=== PATIENT | female | born 1950 | race Caucasian/White ===

== ENCOUNTER 2020-02-28 21:57 | Emergency (ER) | payer OTHER ==
[~2020-02-28] VITALS: Ht 149.9 cm; Wt 90.7 kg
--- NOTE | 2020-02-28 22:04 | Emergency Department Note ---
History of Present Illnes History of Present Illness History of Present Illness This is a 69 year old female with acute on dyspnea 2 hours prior to arrival. Patient with positive exposure to daughter with COVID-19. Presents to the ED in extremis . Arrival Mode: Car Onset (how long ago): hour(s) (2) Severity: severe Onset quality: sudden Duration (how long): hour(s) (2) Timing of current episode: constant Progression: worsening Chronicity: new Associated symptoms: Reports cough, Reports malaise, Reports shortness of breath Treatments prior to arrival: none Past Medical/Family History Physician Review I have reviewed the patient's past medical and family history. Any updates have been documented here. Past Medical History Recent Fever: Yes Clinical Suspicion of Infectio: Yes New/Unexplained Change in Ment: No Past Medical History: Hypertension Past Surgical History: None Social History Smoking Cessation: Never Smoker Alcohol Use: None Any Illegal Drug Use: No Review of Systems Review of Systems Constitutional: Reports fever, Reports weakness EENTM: Reports no symptoms Cardiovascular: Reports no symptoms Respiratory: Reports dyspnea Gastrointestinal: Reports no symptoms Genitourinary: Reports no symptoms Musculoskeletal: Reports no symptoms Integumentary: Reports no symptoms Neurological: Reports no symptoms Psychological: Reports no symptoms Endocrine: Reports no symptoms Hematological/Lymphatic: Reports no symptoms Physical Exam Related Data Allergies: Coded Allergies: Penicillins (Verified Allergy, Intermediate, 02/28/20) Triage Vital Signs Vital Signs Date Time Temp Pulse Resp B/P (MAP) Pulse Ox O2 Delivery O2 Flow Rate FiO2 02/28/20 21:57 99.8 89 217/95 78 02/28/20 22:21 24 Vital signs reviewed: Yes Physical Exam CONSTITUTIONAL Constitutional: Present morbidly obese, Present distressed, Present ill appearing HENT HENT: Present normocephalic, Present atraumatic, Present oropharynx clear/moist, Present nose normal HENT L/R: Present left ext ear normal, Present right ext ear normal EYES Eyes: Reports PERRL, Reports conjunctivae normal NECK Neck: Present ROM normal PULMONARY Pulmonary: Present respiratory distress, Present rhonchi CARDIOVASCULAR Cardiovascular: Present regular rhythm, Present heart sounds normal, Present capillary refill normal, Present normal rate GASTROINTESTINAL Abdominal: Present soft, Present nontender, Present bowel sounds normal GENITOURINARY Genitourinary: Present exam deferred SKIN Skin: Present warm, Present dry MUSCULOSKELETAL Musculoskeletal: Present edema (2+ b/l ) NEUROLOGICAL Neurological: Present alert, Present oriented x 3, Present no gross motor or sensory deficits PSYCHOLOGICAL Psychological: Present mood/affect normal, Present judgement normal Results Laboratory Lab results reviewed: Yes Imaging Imaging results reviewed: Yes Impressions [facility] [address] [place] [address] Patient Name: ELIZ WHALEY MR #: [id number] : 1950 Age/Sex: 69/F Req #: [id number] Adm Physician: Ordered by: SHAHRZAD GONZALEZ DO Report #: [id number] Location: ER Room/Bed: Procedure: [id number] DX/CHEST SINGLE (PORTABLE) Exam Date: 02/28/20 Exam Time: 2250 REPORT STATUS: Signed EXAMINATION: CHEST SINGLE (PORTABLE) INDICATION: Short of breath, cough, fever COMPARISON: None FINDINGS: TUBES and LINES: None. LUNGS: Normal lung volumes. Peripheral and lower lung haziness. Central bronchial wall thickening. PLEURA: No pleural effusion or pneumothorax. HEART AND MEDIASTINUM: The cardiomediastinal silhouette is unremarkable. BONES AND SOFT TISSUES: No acute osseous lesion. Soft tissues are unremarkable. UPPER ABDOMEN: No free air under the diaphragm. IMPRESSION: Findings concerning for multifocal pneumonia, possibly viral. Signed by: Matty Huddleston DO on 02/29/2020 12:12 AM Dictated By: MATTY HUDDLESTON DO Transcribed By: RUPERTO on 02/29/2011 COPY TO: SHAHRZAD GONZALEZ DO~ Procedures 12 Lead ECG Interpretation ECG Interpretation : ECG: ECG 1 Solar Panel Installer: Interpreted by ED physician Date: Feb 28, 2020 Time: 22:16 Prior ECG tracings: reviewed Rhythm: sinus rhythm Ectopy: PVC's Rate: normal BPM: 81 QRS axis: normal ST segments normal: Yes T waves normal: Yes Clinical Impression: abnormal ECG Critical Care Time Total Critical Care Time (min): 31 Critcal care necessary due to: respiratory failure Critcal care time spent by me: develop tx plan w patient/surrogate, evaluation patient response to tx, examination of patient, obtaining hx from patien t/surrogate, order/perform tx or interventions, order/review radiographic studies, pulse oximetry, re-evaluation of patient condition Assessment & Plan Medical Decision Making MDM 69 yof with high suspicion for COVID-19 infection. Patient with elevated BP and low oxygen saturation. Diff Dx : ACS, PTX, PE, pneumonia, CHF. Concern for im pending respiratory failure high. Constant re-evaluation of patient and oxygenation. Patient to be transferred to [facility] for ICU admission Status : CRITICAL Assessment & Plan Final Impression: (1) Upper respiratory tract infection due to COVID-19 virus (2) Hypoxia (3) Congestive heart failure (CHF) (4) Hypertensive emergency Depart Disposition: TRANS TO OTHER [facility] SHAHRZAD GONZALEZ DO Feb 28, 2020 22:04
[2020-02-28] MEDS ORDERED: HYDRALAZINE HCL 20 MG/ML VIAL IV STA (22:11)
[2020-02-28] MEDS ORDERED: ALBUTEROL SULF 0.083% NEB SOLN 3 ML NEB NEB STA (22:18)
[2020-02-28 22:19] LABS: BASOPHILS % 0.2 % (0.0-1.0); EOSINOPHILS % 0.5 % (0.0-6.0); HEMATOCRIT 43.4 % (34.2-44.1); HEMOGLOBIN 14.8 g/dL (12.0-16.0); LYMPHOCYTES # (AUTO) 1.6 (1.0-3.2); LYMPHOCYTES % 29.1 % (18.0-39.1); MEAN CORPUSCULAR HEMOGLOBIN 30.4 pg (28-32); MEAN CORPUSCULAR HGB CONC 34.1 g/dL (31-35); MEAN CORPUSCULAR VOLUME 89.1 fL (81-99); MONOCYTES # (AUTO) 0.5 (0.2-0.8); MONOCYTES % 9.1 % (4.4-11.3); NEUTROPHILS # (AUTO) 3.3 (2.1-6.9); NEUTROPHILS % 60.7 % (38.7-80.0); PLATELET COUNT 210 x10e3/uL (140-360); RED BLOOD COUNT 4.87 x10e6/uL (3.6-5.1); RED CELL DISTRIBUTION WIDTH 12.8 % (11.7-14.4)
[2020-02-28] MEDS ORDERED: ALBUTEROL SULFATE HFA 8GM INHALATION AEROSOL INH ONE (22:36)
[2020-02-28 22:37] LABS: ALANINE AMINOTRANSFERASE 30 IU/L (0-55); ALBUMIN 3.6 g/dL (3.5-5.0); ALBUMIN/GLOBULIN RATIO 0.8 (0.8-2.0); ALKALINE PHOSPHATASE 86 IU/L (40-150); ANION GAP 15.7 mmol/L (8-16); BLOOD UREA NITROGEN 16 mg/dL (7-26); BUN/CREATININE RATIO 19 (6-25); CARBON DIOXIDE 24 mmol/L (22-29); CHLORIDE 100 mmol/L (98-107); CREATINE KINASE 195 IU/L (29-168); CREATININE, SERUM 0.83 mg/dL (0.57-1.11); EST GLOMERULAR FILTRATION RATE > 60 ML/MIN (60-); GLUCOSE 97 mg/dL (74-118); POTASSIUM 3.7 mmol/L (3.5-5.1); SODIUM 136 mmol/L (136-145)
[2020-02-28] MEDS ORDERED: ALBUTEROL SULFATE HFA 8GM INHALATION AEROSOL INH PRN (22:45)
--- NOTE | 2020-02-28 22:50 | NUR ---
Melyssa munoz in ED - 02/28/20 at 2341 by TONY RT AT BEDSIDE FOR BIPAP PLACEMENT.
[2020-02-28] MEDS ORDERED: ONDANSETRON HCL INJ 2MG/ML 2ML 2 MG/ML VIAL IV STA (23:38)
[2020-02-29] MEDS ORDERED: FUROSEMIDE INJ 10 MG/ML 10 ML VIAL IV STA (00:12)
--- NOTE | 2020-02-29 00:15 | Diagnostic Imaging Report ---
EXAMINATION: CHEST SINGLE (PORTABLE) INDICATION: Short of breath, cough, fever COMPARISON: None FINDINGS: TUBES and LINES: None. LUNGS: Normal lung volumes. Peripheral and lower lung haziness. Central bronchial wall thickening. PLEURA: No pleural effusion or pneumothorax. HEART AND MEDIASTINUM: The cardiomediastinal silhouette is unremarkable. BONES AND SOFT TISSUES: No acute osseous lesion. Soft tissues are unremarkable. UPPER ABDOMEN: No free air under the diaphragm. IMPRESSION: Findings concerning for multifocal pneumonia, possibly viral. Signed by: Matty Huddleston DO on 02/29/2020 12:12 AM
[2020-02-29 01:13] LABS: CLARITY,URINE CLEAR (CLEAR); COLOR,URINE YELLOW (YELLOW)
[2020-02-29 01:14] LABS: BACTERIA,URINE MODERATE /HPF; BILIRUBIN,URINE NEGATIVE (NEGATIVE); EPITHELIAL CELLS,URINE MANY /LPF; KETONES,URINE 1+ (NEGATIVE); LEUKOCYTE ESTERASE ,URINE NEGATIVE (NEGATIVE); NITRITE,URINE NEGATIVE (NEGATIVE); PROTEIN,URINE DIPSTICK 1+ (NEGATIVE); URINE UROBILINOGEN 1 mg/dL (0.2 - 1)
[2020-02-29] MEDS ORDERED: LORAZEPAM INJ 2 MG/ML VIAL IV ONE (03:00)
[2020-02-29] MEDS ORDERED: KETOROLAC TROMETHAMINE 30 MG/ML VIAL IV STA (04:18)
[2020-02-29 05:36] VITALS: BP 201/80
== END 2020-02-29 05:38 | disposition other institution (70) ==
LOC: ER 21:57
DX: R09.02 Hypoxemia (principal); R05 Cough; U07.1 COVID-19; J98.8 Other specified respiratory disorders; I50.9 Heart failure, unspecified; I16.0 Hypertensive urgency; E03.9 Hypothyroidism, unspecified; M79.7 Fibromyalgia
CPT/HCPCS: 36415; 71045; 80053; 81001; 82550; 82553; 83605; 83880; 84484; 85025; 85379; 87040; 87635; 99284; J0360; J1885; J2405; 93005

== ENCOUNTER 2020-03-13 13:50 | Inpatient (IN) | payer MEDICARE, OTHER ==
[~2020-03-13] VITALS: Ht 139.7 cm; Wt 90.7 kg
--- NOTE | 2020-03-13 14:54 | Emergency Department Note ---
History of Present Illnes History of Present Illness Chief Complaint: Hypertension History of Present Illness This is a 69 year old female presented to ed via ems c/o elevated bp cp and sob on set today - hx recent covid + march 07 d/c [facility] 3 days ago - hx htn chf Chief Complaint Comment patient called ambulance to home secondary to blood pressure being high. Patient was diagnoses COVID + here 2 o March 07 and d ischarged to home from [facility] 3 days ago. Historian: Patient Arrival Mode: [facility] Treatment PAIN MANAGEMENT NURSE: O2 Onset (how long ago): day(s) (today) Radiation: Reports non-radiation Onset quality: sudden Duration (how long): day(s) (today) Timing of current episode: constant Progression: unchanged Context: Denies recent illness, Denies recent surgery, Denies recent immobilization, Denies recent travel, Denies trauma/injury, Denies new medications, Denies hx of DVT/PE, Denies non-compliance w/ medications, Denies other Relieving factors: none Exacerbating factors: none Associated symptoms: Denies denies other symptoms, Denies confusion, Denies chest pain, Denies cough, Denies diaphoresis, Denies fever/chills, Denies headaches, Denies loss of appetite, Denies malaise, Denies nausea/vomiting, Denies rash, Denies seizure, Denies shortness of breath, Denies syncope, Denies weakness, Denies other Treatments prior to arrival: none Past Medical/Family History Physician Review I have reviewed the patient's past medical and family history. Any updates have been documented here. Past Medical History Recent Fever: No Clinical Suspicion of Infectio: No New/Unexplained Change in Ment: No Past Medical History: Hypertension, CHF Other Medical History: FIBROMYALGIA Past Surgical History: None Other Surgery: BILATERAL THYROIDECTOMY Social History Smoking Cessation: Never Smoker Alcohol Use: None Any Illegal Drug Use: No TB Exposure/Symptoms: No Family History Family history of heart diseas: No Other Any Pre-Existing Lines (PICC,: No Review of Systems Review of Systems Constitutional: Reports no symptoms EENTM: Reports no symptoms Cardiovascular: Reports no symptoms, Reports chest pain, Reports other (c/o elevated bp today); Denies edema, Denies palpitations, Denies syncope Respiratory: Reports no symptoms, Reports dyspnea Gastrointestinal: Reports no symptoms Genitourinary: Reports no symptoms Musculoskeletal: Reports no symptoms Integumentary: Reports no symptoms Neurological: Reports no symptoms Psychological: Reports no symptoms Endocrine: Reports no symptoms Hematological/Lymphatic: Reports no symptoms Physical Exam Related Data Allergies: Coded Allergies: Penicillins (Verified Allergy, Intermediate, 02/28/20) Triage Vital Signs Vital Signs Date Time Temp Pulse Resp B/P (MAP) Pulse Ox O2 Delivery O2 Flow Rate FiO2 03/13/20 14:18 97.6 68 22 184/77 95 Nasal Cannula 2.0 Vital signs reviewed: Yes Physical Exam CONSTITUTIONAL Constitutional: Present well-developed, Present well-nourished HENT HENT: Present normocephalic, Present atraumatic, Present oropharynx clear/moist, Present nose normal HENT L/R: Present left ext ear normal, Present right ext ear normal EYES Eyes: Reports PERRL, Reports conjunctivae normal NECK Neck: Present ROM normal PULMONARY Pulmonary: Present effort normal; Absent breath sounds normal (diminished lower lobes bilat), Absent respiratory distress, Absent rales, Absent rhonchi, Absent chest tenderness CARDIOVASCULAR Cardiovascular: Present regular rhythm, Present heart sounds normal, Present capillary refill normal, Present normal rate, Present other (c/o mid sternal cp minimal ) GASTROINTESTINAL Abdominal: Present soft, Present nontender, Present bowel sounds normal GENITOURINARY Genitourinary: Present exam deferred SKIN Skin: Present warm, Present dry MUSCULOSKELETAL Musculoskeletal: Present ROM normal NEUROLOGICAL Neurological: Present alert, Present oriented x 3, Present no gross motor or sensory deficits PSYCHOLOGICAL Psychological: Present mood/affect normal, Present judgement normal Procedures 12 Lead ECG Interpretation ECG Interpretation : ECG: ECG 1 Telecommunications Project Manager: Interpreted by ED physician Date: Mar 13, 2020 Time: 14:27 Prior ECG tracings: reviewed Rhythm: sinus rhythm Rate: normal BPM: 66 QRS axis: normal T wave inversion: aVR, V1 Assessment & Plan Medical Decision Making MDM This is a 69 year old female presented to ed via ems c/o elevated bp cp and sob on set today - hx recent covid + march 07 d/c [facility] 3 days ago - hx htn chf ordered lab ekg cxr d-dimer medicated w/ asa d/d pne / pe / electrolyte imbalance / acs / mi Reassessment Reassessment discussed lab ekg cxr results plan of care and need for admit spoke w/ Dr Seals will admit Assessment & Plan Final Impression: (1) Hypertension (2) Chest pain Depart Disposition: ADMITTED Last Vital Signs Date Time Temp Pulse Resp B/P (MAP) Pulse Ox O2 Delivery O2 Flow Rate FiO2 03/13/20 14:18 97.6 68 22 184/77 95 Nasal Cannula 2.0 HUBER WU Mar 13, 2020 14:54
[2020-03-13] MEDS ORDERED: ASPIRIN 81 MG CHEW TAB PO ONE ×2 (15:00→16:45)
[2020-03-13 15:21] LABS: BASOPHILS # (AUTO) 0.1 (0.0-0.1); BASOPHILS % 0.4 % (0.0-1.0); EOSINOPHILS # (AUTO) 0.1 (0.0-0.4); EOSINOPHILS % 0.8 % (0.0-6.0); HEMATOCRIT 40.2 % (34.2-44.1); HEMOGLOBIN 13.3 g/dL (12.0-16.0); LYMPHOCYTES # (AUTO) 2.2 (1.0-3.2); LYMPHOCYTES % 15.6 % (18.0-39.1); MEAN CORPUSCULAR HEMOGLOBIN 30.5 pg (28-32); MEAN CORPUSCULAR HGB CONC 33.1 g/dL (31-35); MEAN CORPUSCULAR VOLUME 92.2 fL (81-99); MONOCYTES # (AUTO) 1.5 (0.2-0.8); MONOCYTES % 10.4 % (4.4-11.3); NEUTROPHILS # (AUTO) 9.3 (2.1-6.9); NEUTROPHILS % 67.3 % (38.7-80.0); PLATELET COUNT 240 x10e3/uL (140-360); RED BLOOD COUNT 4.36 x10e6/uL (3.6-5.1); RED CELL DISTRIBUTION WIDTH 12.9 % (11.7-14.4)
[2020-03-13 15:25] LABS: PARTIAL THROMBOPLASTIN TIME 21.7 seconds (23.8-35.5)
[2020-03-13 15:39] LABS: ALBUMIN 3.3 g/dL (3.5-5.0); ANION GAP 13.3 mmol/L (8-16); CALCIUM 9.4 mg/dL (8.4-10.2); CREATININE, SERUM 0.95 mg/dL (0.57-1.11); POTASSIUM 4.3 mmol/L (3.5-5.1)
[2020-03-13 15:45] LABS: INR 0.88; PROTHROMBIN TIME 12.4 seconds (11.9-14.5)
[2020-03-13 16:01] LABS: CREATINE KINASE MB 1.7 ng/mL (0-5.0); THYROID STIMULATING HORMONE 0.579 uIU/mL (0.350-4.940)
[2020-03-13] MEDS ORDERED: ENOXAPARIN SODIUM INJ 100 MG/ML SYR SC STA (16:27)
[2020-03-13] MEDS ORDERED: METOPROLOL TARTRATE 25 MG TAB PO ONE (16:45)
[2020-03-13] MEDS ORDERED: ONDANSETRON HCL INJ 2MG/ML 2ML 2 MG/ML VIAL IV PRN (16:45)
[2020-03-13] MEDS ORDERED: NITROGLYCERIN 0.4 MG SUBL SL PRN (16:45)
--- NOTE | 2020-03-13 16:57 | Diagnostic Imaging Report ---
EXAMINATION: CHEST SINGLE (PORTABLE) INDICATION: ^Y ^ERMD ORDER ^[id number] ^1520 ^Y COMPARISON: 02/28/2020 FINDINGS: AP view TUBES and LINES: None. LUNGS: Lungs are well inflated. Diffuse bilateral reticular opacities are unchanged. No new consolidations. PLEURA: No pleural effusion or pneumothorax. HEART AND MEDIASTINUM: The cardiac silhouette is mildly enlarged. BONES AND SOFT TISSUES: No acute osseous lesion. Soft tissues are unremarkable. UPPER ABDOMEN: No free air under the diaphragm. IMPRESSION: Persistent bilateral reticular opacities suggestive of interstitial edema or viral pneumonia, persistent since 02/28/2020. Signed by: Dr. Eloise Macdonald M.D. on 03/13/2020 4:54 PM
[2020-03-13] MEDS: FAMOTIDINE 20 MG/2 ML VIAL IV SCH (17:27)
--- NOTE | 2020-03-13 18:13 | Diagnostic Imaging Report ---
EXAM: CT Chest WITH contrast 03/13/2020 5:27 PM INDICATION: ^Y ^CHEST PAIN ^[id number] ^1727 ^Y COMPARISON: Chest radiograph 03/13/2020 and 02/28/2020 TECHNIQUE: Spiral CT images of the chest were performed from the lung apices through the level of the adrenal glands after the IV contrast administration. Thin section reconstructions were obtained with special concentration on the pulmonary arteries. IV CONTRAST: 100 mL of Isovue-370 ORAL CONTRAST: None COMPLICATIONS: None RADIATION DOSE: Total DLP: 453.6 mGy*cm Estimated effective dose: (DLP x 0.015 x size factor) mSv CTDIvol has been reviewed. It is below the limits set by the Radiation Protocol Committee (RPC). FINDINGS: LINES/ TUBES: None. PULMONARY ARTERIES: No filling defects are identified in the main, right or left pulmonary arteries to their segmental and subsegmental levels, to suggest pulmonary embolism. The main pulmonary artery is normal in size, measuring 2.9 cm in diameter.. LUNGS AND AIRWAYS: Diffuse bilateral mainly peripheral groundglass consolidation with septal thickening. Airways are normal. PLEURA: The pleural spaces are clear. HEART AND MEDIASTINUM: The thyroid gland is normal. No mediastinal, hilar or axillary lymphadenopathy. The heart is normal in size. There is no pericardial effusion. Diffuse coronary artery calcifications. The thoracic aorta and normal in size and associated with scattered moderate atherosclerotic calcifications. UPPER ABDOMEN: Unremarkable. BONES: The visualized bony thorax is within normal limits. SOFT TISSUES: Unremarkable. IMPRESSION: No pulmonary embolism. Persistent diffuse bilateral mainly peripheral consolidations consistent with persistent Covid 19 pneumonia. Signed by: Dr. Eloise Macdonald M.D. on 03/13/2020 6:10 PM
[2020-03-13] MEDS ORDERED: ALBUTEROL SULFATE HFA 8GM INHALATION AEROSOL INH PRN (19:00)
[2020-03-13] MEDS ORDERED: HYDRALAZINE HCL 25 MG TAB PO PRN (19:00)
[2020-03-13] MEDS ORDERED: PIPER-TAZ 3.375 GM 50 ML IV SCH (19:00)
--- NOTE | 2020-03-13 19:10 | History and Physical ---
CHIEF COMPLAINT: Increasing chest pain, shortness of breath, hypertensive urgency. HISTORY OF PRESENT ILLNESS: The patient is a 69-year-old female, was diagnosed COVID positive for approximately 10-15 days ago. She was here on March 04 and because of her COVID positive, she was transferred to [facility]. The patient was there and just recently discharged approximately 4 days ago. Basically, the patient was there for 6-7 days. She was sent home with oxygen support. The patient was trying to wean her off oxygen and apparently she went off oxygen and she got panicked. Her blood pressure elevated and EMS was subsequently brought the patient to the hospital. Here, the patient's blood pressure systolic 184, diastolic 77. The patient placed back on oxygen. She is comfortable. The patient x-ray was done including a chest CT found no pulmonary embolism. However, she had persistent diffuse bilateral mainly perihilar consolidation consistent with persistent COVID-19 pneumonia. The patient is admitted. She is to be treated. Antibiotics initiated. WBC was 14,000. PAST MEDICAL HISTORY: COVID-19 positive. Fibromyalgia. Hypothyroidism. Hypertension. Congestive heart failure history. PAST SURGICAL HISTORY: Bilateral thyroidectomy. SOCIAL HISTORY: The patient is from [place]. She is visiting her family here. ALLERGIES: PENICILLIN. HOME MEDICATIONS: Not yet available for review. REVIEW OF SYSTEMS: Increasing shortness of breath, chest pain. PHYSICAL EXAMINATION: VITAL SIGNS: Temperature is 98, blood pressure 184/77, pulse rate 68, respirations 22. GENERAL: The patient is not in acute distress. She is awake. HEENT: Normocephalic and atraumatic. Anicteric. NECK: Supple grossly. PULMONARY: Diminished breath sounds bilaterally with coarses. CARDIOVASCULAR: S1, S2. Regular rate and rhythm. ABDOMEN: Soft, obese. EXTREMITIES: Multiple bruises in lower extremity. NEUROLOGIC: No focal deficit. LABORATORY DATA: WBC is 14,000, hemoglobin 13.3, hematocrit 40, platelets 240. Chemistry; sodium 141, potassium 4.1, chloride 106, bicarb 26, BUN is 36, creatinine 0.9, and glucose is 91. Repeated COVID serologies pending. CT scan showed persistent infiltrate consistent with COVID-19 pneumonia. IMPRESSION: 1. Possible superimposed pneumonia given the fact that the patient was positive for coronavirus disease pneumonia back on March 04 when the patient was here. 2. Acute hypoxia. 3. Hypertensive urgency. 4. Multiple chronic baseline problems. PLAN: Continue to treat the patient as if she has superimposed pneumonia. The patient also had a CT chest with contrast showed no pulmonary embolism. The patient received oxygen support. Continue with blood pressure control. We will monitor the patient closely. We will follow up on the patient's status. MD CARMEN Suarez/JENNIFER /[id number]
[2020-03-13] MEDS ORDERED: IOPAMIDOL 370 MG/ML 200 ML INFUS..BTL INJ ONE (20:11)
[2020-03-13] MEDS ORDERED: SODIUM CHLORIDE 0.9% 50ML 50 ML ONE (20:11)
[2020-03-13] MEDS: METOPROLOL TARTRATE 25 MG TAB PO SCH (21:38)
[2020-03-13] MEDS: CEFEPIME 1GM/NS 0.9% 50 ML 50 ML IV SCH (21:40)
[2020-03-13] MEDS: SIMVASTATIN 20 MG TAB PO SCH (22:26)
[2020-03-13] MEDS: METRONIDAZOLE 500MG/NS 100ML 100 ML IV SCH (22:35)
[2020-03-14] MEDS ORDERED: ENOXAPARIN SODIUM INJ 100 MG/ML SYR SC SCH (05:00)
[2020-03-14] MEDS: METRONIDAZOLE 500MG/NS 100ML 100 ML IV SCH ×3 (05:00→23:30)
[2020-03-14 07:18] LABS: BASOPHILS # (AUTO) 0.1 (0.0-0.1); BASOPHILS % 0.4 % (0.0-1.0); EOSINOPHILS # (AUTO) 0.2 (0.0-0.4); EOSINOPHILS % 1.2 % (0.0-6.0); HEMATOCRIT 38.6 % (34.2-44.1); HEMOGLOBIN 12.6 g/dL (12.0-16.0); LYMPHOCYTES # (AUTO) 2.2 (1.0-3.2); LYMPHOCYTES % 16.1 % (18.0-39.1); MEAN CORPUSCULAR HEMOGLOBIN 29.8 pg (28-32); MEAN CORPUSCULAR HGB CONC 32.6 g/dL (31-35); MEAN CORPUSCULAR VOLUME 91.3 fL (81-99); MONOCYTES # (AUTO) 1.7 (0.2-0.8); MONOCYTES % 12.3 % (4.4-11.3); NEUTROPHILS # (AUTO) 9.2 (2.1-6.9); PLATELET COUNT 247 x10e3/uL (140-360); RED BLOOD COUNT 4.23 x10e6/uL (3.6-5.1); RED CELL DISTRIBUTION WIDTH 13.1 % (11.7-14.4)
--- NOTE | 2020-03-14 07:25 | NUR ---
NURSING REPORT RECEIVED FROM MUKUND FRANCISCO.
[2020-03-14 07:47] LABS: ALANINE AMINOTRANSFERASE 38 IU/L (0-55); ALBUMIN 2.9 g/dL (3.5-5.0); ALBUMIN/GLOBULIN RATIO 0.9 (0.8-2.0); ALKALINE PHOSPHATASE 38 IU/L (40-150); ANION GAP 11.1 mmol/L (8-16); BLOOD UREA NITROGEN 30 mg/dL (7-26); BUN/CREATININE RATIO 36 (6-25); CALCIUM 8.4 mg/dL (8.4-10.2); CARBON DIOXIDE 25 mmol/L (22-29); CHLORIDE 107 mmol/L (98-107); CHOL/HDL RATIO 4.2 (3.0-3.6); CHOLESTEROL 174 MD/DL (0-199); CREATININE, SERUM 0.84 mg/dL (0.57-1.11); EST GLOMERULAR FILTRATION RATE > 60 ML/MIN (60-); GLUCOSE 111 mg/dL (74-118); HDL CHOLESTEROL 41 MG/DL (40-60); LDL CHOLESTEROL 112 MG/DL (60-130); MAGNESIUM 1.9 MG/DL (1.3-2.1); POTASSIUM 4.1 mmol/L (3.5-5.1); SODIUM 139 mmol/L (136-145); TRIGLYCERIDES 103 MG/DL (0-149)
[2020-03-14 08:16] LABS: CREATINE KINASE MB 1.1 ng/mL (0-5.0)
--- NOTE | 2020-03-14 08:31 | NUR ---
PT HAD LARGE SOFT BROWN BM ON BEDPAN, NOTED SATURATED DIAPER. CLEANED PT, PUREWICK PLACED ON PT AND CLEAN DIAPER. PT GIVEN MEDS PER EMAR.
[2020-03-14] MEDS: CEFEPIME 1GM/NS 0.9% 50 ML 50 ML IV SCH ×2 (08:33→22:45)
[2020-03-14] MEDS: METOPROLOL TARTRATE 25 MG TAB PO SCH ×2 (08:34→13:17)
[2020-03-14] MEDS: LISINOPRIL 20 MG TAB PO SCH ×2 (08:35→13:19)
[2020-03-14] MEDS: ASCORBIC ACID 500 MG TAB PO SCH ×2 (08:35→19:47)
[2020-03-14] MEDS: ENOXAPARIN SOD INJ 40 MG/0.4 ML SYR SC SCH (08:35)
[2020-03-14] MEDS ORDERED: ZINC SULFATE 220 MG CAP PO SCH (09:00)
[2020-03-14] MEDS ORDERED: ASPIRIN 81 MG ENTERIC COATED PO SCH (09:00)
--- NOTE | 2020-03-14 11:03 | Consultation ---
DATE OF CONSULTATION: 03/13/2020 REASON FOR CONSULTATION: Hypertension, chest pain, shortness of breath. CHIEF COMPLAINT: Shortness of breath. HISTORY OF PRESENT ILLNESS: This is a 69-year-old female with recent history of COVID, on March 04 was apparently transferred from [facility] to [facility] and she was discharged about five days ago on home oxygen. However, the patient was weaned off her home oxygen, became slightly hypoxic, short of breath. The patient became panic in which she called EMS to be brought to the hospital for further evaluation. There was noted to be a blood pressure of 184/77. Cardiology was consulted secondary to her hypertension and shortness of breath. CT was done showing diffuse bilateral consolidation consistent with COVID-19 pneumonia. PAST MEDICAL HISTORY: COVID-19, fibromyalgia, hypothyroidism, hypertension. PAST SURGICAL HISTORY: Bilateral thyroidectomy. SOCIAL HISTORY: She is from [place]. ALLERGIES: TO PENICILLIN. REVIEW OF SYSTEMS: Shortness of breath, fatigue, weakness, fevers, chills, and chest tightness with deep breathing. PHYSICAL EXAMINATION: GENERAL: She is frail, appears ill, no acute distress at this time. VITAL SIGNS: Height 55 inches, weight 200 pounds, temperature 97.6, pulse is 70, blood pressure 129/73, pulse ox 96% on 3 L nasal cannula. SKIN: No rashes or bruises. HEENT: Normocephalic. Pupils are equal and reactive. Extraocular movements intact. Trachea midline. NECK: No JVD. No carotid bruit. HEART: Regular rate and rhythm. LUNGS: Coarse bilateral breath sounds. ABDOMEN: Soft, nontender, and nondistended. VASCULAR: +2 radial pulses, +1 DP and PT pulses bilaterally. NEUROLOGIC: Cranial nerves 2 through 12 seem intact. LABORATORY DATA: Sodium 139, potassium 4.1, chloride 107, bicarb 25, creatinine 0.8, BUN 30. Troponin 0.013, 0.010. TSH 0.5. White count 13, hemoglobin 12, hematocrit 38, platelets 247. CT chest showing persistent bilateral consolidation consistent with COVID-19 pneumonia. EKG showing sinus rhythm, no acute changes suggestive of acute event. ASSESSMENT: 1. COVID positive pneumonia. 2. Acute hypoxia secondary to COVID positive pneumonia. 3. Hypertension. 4. Chest pain. PLAN: 1. The patient presents to [facility] ER with complaints of shortness of breath, chest tightness and hypertension. 2. COVID-19 therapy as per ID. 3. Negative cardiac enzymes x2. Chest pain, atypical for cardiac. 4. Continue antihypertensive. 5. DVT prophylaxis. Thank you very much for this consult. Evaluated Agree with note Dictated by Geronimo Brady NP José Antonio Oliva MD DC/JENNIFER /[id number] MTDD
[2020-03-14] MEDS: MORPHINE SULFATE 2 MG/ML SYR 1ML IV PRN ×2 (12:00→18:45)
[2020-03-14] MEDS ORDERED: DEXAMETHASONE PHOS 4MG/ML 5ML MULTIDOSE VIAL IV SCH (14:45)
[2020-03-14] MEDS: FAMOTIDINE 20 MG/2 ML VIAL IV SCH ×2 (15:52→19:47)
[2020-03-14 17:01] LABS: CREATINE KINASE MB 1.1 ng/mL (0-5.0)
[2020-03-15] MEDS: METOPROLOL TARTRATE 25 MG TAB PO SCH (00:13)
[2020-03-15] MEDS: ENOXAPARIN SOD INJ 40 MG/0.4 ML SYR SC SCH (00:13)
[2020-03-15] MEDS: SIMVASTATIN 20 MG TAB PO SCH (00:13)
[2020-03-15] MEDS: FAMOTIDINE 20 MG/2 ML VIAL IV SCH (00:14)
[2020-03-15] MEDS: METRONIDAZOLE 500MG/NS 100ML 100 ML IV SCH (06:25)
--- NOTE | 2020-03-15 07:50 | Diagnostic Imaging Report ---
Examination: Single AP view of the chest. COMPARISON: CT chest 03/13/2020 INDICATION: Shortness of breath/COVID IMPRESSION: 1. Lines and Tubes: None 2. Lungs are well-inflated. Bilateral diffuse interstitial opacities, with more confluent airspace opacities in the left lower lung, consistent with pneumonia (including viral). 3. Cardiomediastinal silhouette is normal. Pulmonary vasculature is normal. 4. No acute bony abnormalities. Signed by: Dr. Patrice Diaz M.D. on 03/15/2020 7:47 AM
--- NOTE | 2020-03-15 08:16 | NUR ---
AM LABS DONE
[2020-03-15 08:55] LABS: BASOPHILS % 0.2 % (0.0-1.0); EOSINOPHILS # (AUTO) 0.3 (0.0-0.4); HEMATOCRIT 39.2 % (34.2-44.1); HEMOGLOBIN 12.6 g/dL (12.0-16.0); LYMPHOCYTES # (AUTO) 2.1 (1.0-3.2); LYMPHOCYTES % 16.9 % (18.0-39.1); MEAN CORPUSCULAR HEMOGLOBIN 30.7 pg (28-32); MEAN CORPUSCULAR HGB CONC 32.1 g/dL (31-35); MEAN CORPUSCULAR VOLUME 95.6 fL (81-99); MONOCYTES # (AUTO) 1.1 (0.2-0.8); MONOCYTES % 8.4 % (4.4-11.3); NEUTROPHILS # (AUTO) 8.8 (2.1-6.9); NEUTROPHILS % 70.2 % (38.7-80.0); PLATELET COUNT 233 x10e3/uL (140-360); RED CELL DISTRIBUTION WIDTH 13.1 % (11.7-14.4)
[2020-03-15 09:14] LABS: ALANINE AMINOTRANSFERASE 33 IU/L (0-55); ALKALINE PHOSPHATASE 41 IU/L (40-150); ANION GAP 10.1 mmol/L (8-16); BLOOD UREA NITROGEN 24 mg/dL (7-26); BUN/CREATININE RATIO 30 (6-25); CALCIUM 8.1 mg/dL (8.4-10.2); CARBON DIOXIDE 26 mmol/L (22-29); CHLORIDE 106 mmol/L (98-107); CREATININE, SERUM 0.81 mg/dL (0.57-1.11); EST GLOMERULAR FILTRATION RATE > 60 ML/MIN (60-); GLUCOSE 90 mg/dL (74-118); POTASSIUM 4.1 mmol/L (3.5-5.1); SODIUM 138 mmol/L (136-145)
--- NOTE | 2020-03-15 09:31 | NUR ---
SLEEPING, ATE 100% BREAKFAST. NAD AT THIS TIME.VSS. RESTING COMFORTABLLY
[2020-03-15 09:40] LABS: CREATINE KINASE 36 IU/L (29-168)
--- NOTE | 2020-03-15 10:40 | NUR ---
pt walked to restroom only feet from bed and back to bed < 3 mins. sats room air dropped to 62-63% ; pt placed on nc 6lpm stat and sats increased immediately going up to 95-96% and resp rate decreased from 26 to 16, hob modified high fowlers. sats now 4 LPM = 96%. now resting comfortablly. pt reports dark stool, no hx gi bleeds. calling attending to notify md of findings.
--- NOTE | 2020-03-15 11:22 | NUR ---
seen by dr bejarano, discharge home per md. pt must have oxygen, pt states already has home oxygen and is aware of increased from 2 LPM to 4 LMP. pt states verbal understanding. pt is aaox4. able to ambulatory
--- NOTE | 2020-03-15 11:46 | NUR ---
[facility] ems called for transport
--- NOTE | 2020-03-15 12:47 | NUR ---
IV D/C'D, COPY OF RX ON CHART. REPORT TO EMS, AGAIN RE-ITTERATED NEED FOR OXYGEN AT 4 LPM ON NC. PT STATES UNDERSTANDING. RX GIVEN TO PT AND VERBAL DC INSTRUCTIONS FOR FOLLOW UP.STATES UNDERSTANDING.
[2020-03-15] MEDS ORDERED: CHOLECALCIFEROL 400 UNIT TAB PO SCH (17:00)
--- NOTE | 2020-03-15 22:03 | Consultation ---
DATE OF CONSULTATION: 03/14/2020 REASON FOR CONSULTATION: COVID-19, shortness of breath. HISTORY OF PRESENT ILLNESS: This is a 69-year-old female. She was diagnosed with COVID-19, 10 to 15 days ago. She was here on March 04 because of COVID-19. She was sent to [facility] in the [place]. The patient was there, recently discharged 4 days ago. The patient is trying to be off oxygen, but was coming back with shortness of breath and the patient is being admitted. The patient was seen on 03/14. Note was dictated. The patient was currently doing slightly better. PHYSICAL EXAMINATION: GENERAL: She is currently alert, oriented, does not seem to be in acute distress. VITAL SIGNS: Afebrile. HEENT: She is not icteric. NECK: Supple. CHEST: A few crackles. COR: S1and S2. ABDOMEN: Soft. IMPRESSION: Coronavirus disease-19 recently. I think she is short of breath, concerned superimposed bacterial pneumonia. I think the patient is stable to be discharged with dexamethasone a course of Ceftin. I would recommend the patient could be discharged home with anticoagulation, Eliquis 5 mg p.o. b.i.d. for 30 days. MD CARLI Ortiz/JENNIFER /[id number]
--- NOTE | 2020-03-16 02:03 | Discharge Summary ---
FINAL DIAGNOSES: 1. Recent coronavirus disease-2019 positive pneumonia. 2. Superimposed bacterial pneumonia. 3. Hypertensive urgency, much improved. 4. Chest pain, resolved. 5. Oxygen required. The patient does have oxygen at home. 6. Cough, much improved. SUMMARY: The patient is a 69-year-old female. Please review my history and physical. The patient was just recently discharged from [facility] for COVID-19. She has oxygen at home. She came to the hospital because of increasing shortness of breath and more importantly her blood pressure was very elevated. The patient is initiated on not only superimposed bacterial antibiotics treatment, but also treatment for her blood pressure. Imaging tests showed that the patient's CT scan showed no pulmonary embolism. She has persistent diffuse bilateral mainly peripheral consolidation consistent with persistent COVID-19 pneumonia. The patient is stable with Decadron and nebulizer treatments. She is comfortable today. She is ambulatory. She get out of bed. Her cardiac enzyme has been negative. She is afebrile. She does have oxygen at home. The patient will be discharged home today to follow up as an outpatient with her family physician in 2-3 weeks. The patient will be quarantined for two weeks as well. She will be discharged home with the following medications: 1. mg twice a day. 2. Decadron 4 mg daily for 7 days. 3. Lisinopril 20 mg daily. 4. Lopressor 25 mg b.i.d. 5. Zinc sulfate 220 mg b.i.d. 6. Levaquin 500 mg daily for 7 days. 7. Robitussin AC 5 mL q.4 h p.r.n. for cough. 8. Zofran ODT 4 mg sublingual q.4 hours as needed for nausea and vomiting. The patient is stable, discharged home. Follow up as instructed and quarantine 2 weeks. 2 g sodium diet. Oxygen daily at home. Echocardiogram showed ejection fraction 60%. The patient is stable, discharged today. MD CARMEN Suarez/JENNIFER /[id number]
--- NOTE | 2020-03-16 06:14 | Consultation ---
DATE OF CONSULTATION: 03/14/2020 CHIEF COMPLAINT: Shortness of breath. HISTORY OF PRESENT ILLNESS: This is a 69-year-old female with history of COVID-19, was diagnosed on , comes in from [facility], where she was discharged about 5 days ago on home oxygen. However, she was weaned off oxygen, became again short of breath, so she was transferred here. She said she was here because blood pressure was high. At present time, she is on oxygen, and she is doing well. PAST MEDICAL HISTORY: Significant for: 1. Obesity. 2. Fibromyalgia. 3. Hypothyroidism. 4. Hypertension. 5. COVID-19. 6. Thyroidectomy. SOCIAL HISTORY: There is no smoking, drug abuse, or alcohol abuse. REVIEW OF SYSTEMS: Rest of the review of systems otherwise shortness of breath. LABORATORY DATA: White count is 13.9, hemoglobin 12.6. Sodium 139, potassium 4.1, creatinine 0.84. Her chest CT which was done showed no pulmonary embolism, but bilateral consolidation. PHYSICAL EXAMINATION: GENERAL: She is currently alert and oriented. She seems almost comfortable. VITALS: Stable, afebrile. HEENT: She is not icteric. NECK: Supple. CHEST: Crackles bilateral. COR: S1-S2. ABDOMEN: Soft. IMPRESSION: Shortness of breath, probably related to COVID-19 versus aspiration pneumonia. Agree with anticoagulation. We will give her another course of Decadron. She is currently on cefepime and metronidazole. She continued to improve. She can be discharged home with home oxygen and another course of Decadron and a low dose of oral anticoagulation recommended for 2 days DICTATION ENDS HERE MD CARLI Ortiz/JENNIFER /[id number]
== END 2020-03-15 12:50 | disposition home or self-care (01) | DRG 177 ==
LOC: ER 13:50 → ERHOLD 16:37 → OBSVTOIN 18:51 → ERHOLD 03-15 09:01
PROVIDERS: ADMIT Internal Medicine; ATTEND Internal Medicine
DX: U07.1 COVID-19 (principal); J12.89 Other viral pneumonia; J15.9 Unspecified bacterial pneumonia; Z68.42 Body mass index [BMI] 45.0-49.9, adult; I16.0 Hypertensive urgency; Z99.81 Dependence on supplemental oxygen; E66.9 Obesity, unspecified; M79.7 Fibromyalgia; E03.9 Hypothyroidism, unspecified; R09.02 Hypoxemia
CPT/HCPCS: 36415; 71045; 71260; 80053; 80061; 82550; 82553; 83735; 83880; 84443; 84484; 85025; 85379; 85610; 85730; 87040; 87635; 93005; 93306; 99285; J0692; J1650; J2270; J2405; Q9967